=== PATIENT | male | born 1930 | race Caucasian/White ===

== ENCOUNTER 2019-03-04 06:38 | Emergency (ER) | payer OTHER ==
[~2019-03-04] VITALS: Ht 188 cm; Wt 101.0 kg
[~2019-03-04 06:38] MED LIST: METF-960 PO; OXYC10 PO
[2019-03-04] MEDS ORDERED: ISOS30TA6 PO (07:17)
[2019-03-04] MEDS ORDERED: ASPI-989 PO (07:17)
[2019-03-04] MEDS ORDERED: LEVO500 PO (07:17)
[2019-03-04] MEDS ORDERED: QUES4 PO (07:17)
[2019-03-04] MEDS ORDERED: ATOR20TA86 PO (07:17)
[2019-03-04] MEDS ORDERED: IPRAHFA IH (07:17)
[2019-03-04] MEDS ORDERED: ALLO300 PO (07:17)
[2019-03-04] MEDS ORDERED: OMEP20 PO (07:17)
[2019-03-04] MEDS ORDERED: TAMS-1 PO (07:17)
[2019-03-04] MEDS ORDERED: LISI-660 PO (07:17)
[2019-03-04] MEDS ORDERED: BICA50TA8 PO (07:17)
[2019-03-04] MEDS ORDERED: METO25XL PO (07:17)
[2019-03-04] MEDS ORDERED: METF-960 PO (07:17)
[2019-03-04] MEDS ORDERED: MORPHINE SULFATE 4 MG/ML SYRINGE IM ONE (07:30)
[2019-03-04 09:30] VITALS: BP 134/64
== END 2019-03-04 10:21 | disposition home or self-care (01) ==
LOC: EMS 06:42
DX: M54.2 Cervicalgia (principal); I48.91 Unspecified atrial fibrillation; I10 Essential (primary) hypertension; I48.0 Paroxysmal atrial fibrillation; K21.9 Gastro-esophageal reflux disease without esophagitis; M19.90 Unspecified osteoarthritis, unspecified site; Z79.899 Other long term (current) drug therapy; Z88.0 Allergy status to penicillin; Z88.1 Allergy status to other antibiotic agents
CPT/HCPCS: 72125; 96372; 99284; J2270